=== PATIENT | female | born 1960 | race Caucasian/White ===

== ENCOUNTER 2017-11-16 12:23 | Emergency (ER) | payer MEDICAID ==
[~2017-11-16] VITALS: Ht 157.5 cm; Wt 72.2 kg
[~2017-11-16 12:23] MED LIST: BUPR150T6 PO; FLUO20CA39 PO; HYDR-3686 PO; LEVO112T5 PO; LEVO500T89 PO; METF850T2 PO; OMEP20CA10 PO; ONDA4TAB9 PO; ROPI0.5T2 PO; TAM75C PO; TOPI25TA49 PO; TRAM50TA2 PO; TRAZ-146 PO; ZIPR40CA2 PO
[2017-11-16] MEDS ORDERED: nitroGLYCERIN 0.4mg SUBLingual tab SL PRN (12:35)
[2017-11-16] MEDS ORDERED: aspirin 81mg tab.chew PO ONE (12:35)
[2017-11-16 12:55] LABS: BASOPHILS % (AUTO) 0.3 % (0-1); EOSINOPHILS # (AUTO) 0.3 X10'3 (0-0.9); HEMATOCRIT 41.1 % (35.0-45.0); HEMOGLOBIN 13.6 g/dl (12.0-16.0); LYMPHOCYTES # (AUTO) 2.3 X10'3 (1.1-4.8); LYMPHOCYTES % (AUTO) 33.1 % (21-51); MEAN CORPUSCULAR HEMOGLOBIN 29.9 PG (27.0-31.0); MEAN CORPUSCULAR HGB CONC 33.2 % (33.0-36.5); MEAN CORPUSCULAR VOLUME 90.2 FL (78-98); MEAN PLATELET VOLUME 9.8 FL (7.4-10.4); MONOCYTES # (AUTO) 0.4 X10'3 (0-0.9); MONOCYTES % (AUTO) 5.3 % (2-12); NEUTROPHILS # (AUTO) 3.9 X10'3 (1.8-7.7); NEUTROPHILS % (AUTO) 56.3 % (42-75); PLATELET COUNT 227 X10'3 (140-440); RED BLOOD COUNT 4.55 X10'6 (4.20-5.60); RED CELL DISTRIBUTION WIDTH 14.6 % (11.5-14.5); WHITE BLOOD COUNT 6.9 X10'3 (4.5-11.0)
[2017-11-16 13:18] LABS: ALANINE AMINOTRANSFERASE 26 U/L (12-78); ALBUMIN 3.7 G/DL (3.4-5.0); ALBUMIN/GLOBULIN RATIO 0.9 (1.1-1.5); ALKALINE PHOSPHATASE 63 IU/L (46-116); ANION GAP 13 (8-16); ASPARTATE AMINO TRANSFERASE 18 U/L (10-37); BILIRUBIN,TOTAL 0.2 MG/DL (0.1-1.0); BLOOD UREA NITROGEN 14 MG/DL (7-18); BUN/CREATININE RATIO 13.6 (6.6-38.0); CHLORIDE 107 MMOL/L (99-107); CREATININE 1.03 MG/DL (0.40-0.90); GLUCOSE 107 MG/DL (70-104); MAGNESIUM 1.8 MG/DL (1.5-2.4); SODIUM 142 MMOL/L (135-145); TOTAL CARBON DIOXIDE 21.9 MMOL/L (24-32); TOTAL PROTEIN 7.8 G/DL (6.4-8.2); eGFR 55 ML/MIN
[2017-11-16] MEDS ORDERED: CIPR-230 PO (13:36)
[2017-11-16] MEDS ORDERED: ALBU8HFA PO (13:36)
[2017-11-16] MEDS ORDERED: PRED20TA PO (13:36)
[2017-11-16] MEDS ORDERED: predniSONE 20 mg tablet PO ONE (13:40)
[2017-11-16 14:17] VITALS: BP 128/78
== END 2017-11-16 14:20 | disposition home or self-care (01) ==
LOC: ER 12:23
DX: J44.1 Chronic obstructive pulmonary disease with (acute) exacerbation (principal); E78.00 Pure hypercholesterolemia, unspecified; I10 Essential (primary) hypertension; E11.9 Type 2 diabetes mellitus without complications; M19.90 Unspecified osteoarthritis, unspecified site; G89.29 Other chronic pain; F12.10 Cannabis abuse, uncomplicated; Z90.49 Acquired absence of other specified parts of digestive tract; Z88.0 Allergy status to penicillin; Z88.8 Allergy status to other drugs, medicaments and biological substances; Z79.899 Other long term (current) drug therapy
CPT/HCPCS: 36415; 71045; 80053; 83735; 83880; 84484; 85025; 93005; 99285; J7030; J7512

== ENCOUNTER 2018-08-28 00:13 | Emergency (ER) | payer MEDICAID ==
[~2018-08-28] VITALS: Ht 157.5 cm; Wt 63.3 kg
[~2018-08-28 00:13] MED LIST changes: +METF-437 PO; -METF850T2 PO; -TRAZ-146 PO; +TRAZ-219 PO
[2018-08-28 00:18] VITALS: BP 169/100
[2018-08-28 00:47] LABS: BASOPHILS % (AUTO) 0.4 % (0-1); EOSINOPHILS # (AUTO) 0.1 X10'3 (0-0.9); EOSINOPHILS % (AUTO) 1.7 % (0-6); HEMATOCRIT 43.9 % (35.0-45.0); HEMOGLOBIN 14.4 g/dl (12.0-16.0); LYMPHOCYTES # (AUTO) 1.7 X10'3 (1.1-4.8); LYMPHOCYTES % (AUTO) 23.9 % (21-51); MEAN CORPUSCULAR HEMOGLOBIN 29.6 PG (27.0-31.0); MEAN CORPUSCULAR HGB CONC 32.8 % (33.0-36.5); MEAN CORPUSCULAR VOLUME 90.3 FL (78-98); MEAN PLATELET VOLUME 8.6 FL (7.4-10.4); MONOCYTES # (AUTO) 0.4 X10'3 (0-0.9); MONOCYTES % (AUTO) 6.1 % (2-12); NEUTROPHILS # (AUTO) 4.9 X10'3 (1.8-7.7); NEUTROPHILS % (AUTO) 67.9 % (42-75); PLATELET COUNT 236 X10'3 (140-440); RED BLOOD COUNT 4.86 X10'6 (4.20-5.60); RED CELL DISTRIBUTION WIDTH 14.1 % (11.5-14.5); WHITE BLOOD COUNT 7.2 X10'3 (4.5-11.0)
[2018-08-28 01:03] LABS: ALANINE AMINOTRANSFERASE 25 U/L (12-78); ALBUMIN 3.7 G/DL (3.4-5.0); ALBUMIN/GLOBULIN RATIO 0.9 (1.1-1.5); ALKALINE PHOSPHATASE 79 IU/L (46-116); ANION GAP 11 (8-16); ASPARTATE AMINO TRANSFERASE 18 U/L (10-37); BILIRUBIN,TOTAL 0.3 MG/DL (0.1-1.0); BLOOD UREA NITROGEN 18 MG/DL (7-18); BUN/CREATININE RATIO 22.8 (6.6-38.0); CHLORIDE 103 MMOL/L (99-107); CREATININE 0.79 MG/DL (0.40-0.90); GLUCOSE 111 MG/DL (70-104); POTASSIUM 3.9 MMOL/L (3.5-5.1); SODIUM 140 MMOL/L (135-145); TOTAL CARBON DIOXIDE 26.5 MMOL/L (24-32); TOTAL PROTEIN 7.7 G/DL (6.4-8.2); eGFR 75 ML/MIN
[2018-08-28 01:12] LABS: ETHANOL < 0.010 GM/DL (0.0-0.010)
[2018-08-28] MEDS ORDERED: ziprasidone 20mg capsule PO SCH (03:25)
== END 2018-08-28 03:57 | disposition home or self-care (01) ==
LOC: ER 00:14
DX: F19.20 Other psychoactive substance dependence, uncomplicated (principal); F31.81 Bipolar II disorder; R45.851 Suicidal ideations; R44.3 Hallucinations, unspecified; I10 Essential (primary) hypertension; E78.00 Pure hypercholesterolemia, unspecified; J44.9 Chronic obstructive pulmonary disease, unspecified; E11.9 Type 2 diabetes mellitus without complications; M19.90 Unspecified osteoarthritis, unspecified site; G89.29 Other chronic pain; F12.90 Cannabis use, unspecified, uncomplicated; Z90.49 Acquired absence of other specified parts of digestive tract; Z95.0 Presence of cardiac pacemaker; Z88.0 Allergy status to penicillin; Z88.8 Allergy status to other drugs, medicaments and biological substances; Z79.84 Long term (current) use of oral hypoglycemic drugs; Z79.2 Long term (current) use of antibiotics; Z79.899 Other long term (current) drug therapy; Z59.0 Homelessness
CPT/HCPCS: 36415; 80053; 80320; 85025; 99284